=== PATIENT | female | born 1990 | race Caucasian/White ===

== ENCOUNTER → 2016-02-23 | Outpatient (CLI) | payer BC ==
[~2016-02-23] MED LIST: CALC500C70 PO; MTR600X PO; PRENTAB26 PO
--- NOTE | 2016-02-23 12:37 | DIAGNOSTIC IMAGING REPORT ---
L-SPINE MIN 4 VIEWS ROUTINE CLINICAL HISTORY: Bilateral numbness and tingling of the arms and legs COMPARISON STUDY: No previous studies for comparison. FINDINGS: There is no pathologic bowel dilatation. There is a cylindrical air-containing structure within the pelvis likely representing a tampon. There are 5 lumbar type vertebral bodies present. No fractures or subluxations are visualized. The disc space heights appear well-preserved for age. IMPRESSION: Unremarkable conventional radiographic evaluation of the lumbar spine. Electronically signed by: Vladislav De La Rosa M.D. 02/23/2016 12:36 PM Dictated Date/Time: 02/23/2016 12:35 PM
--- NOTE | 2016-02-23 13:03 | DIAGNOSTIC IMAGING REPORT ---
CERVICAL SPINE 2 OR 3 VIEWS CLINICAL HISTORY: Bilateral extremity numbness and tingling. COMPARISON STUDY: No previous studies for comparison. FINDINGS: Alignment of the cervical spine is anatomic. Vertebral body heights are maintained. There is no fracture or suspicious lesion. Disc spaces are preserved. There may be minimal endplate osteophytosis. IMPRESSION: No significant abnormality of the cervical spine. Electronically signed by: Michi Sarmiento M.D. 02/23/2016 1:01 PM Dictated Date/Time: 02/23/2016 1:01 PM
== END | disposition home or self-care (01) ==
LOC: C.RAD1850 12:10
PROVIDERS: ATTEND Nurse Practitioner
DX: R20.2 Paresthesia of skin (principal)

== ENCOUNTER → 2016-02-23 | Outpatient (CLI) | payer BC ==
[2016-02-23 12:27] LABS: BASO % 0.3 %; BASO ABS # 0.03 K/uL (0-0.2); COMPLETE YES; EOS % 1.4 %; HEMATOCRIT 40.5 % (37-47); IG% 0.2 %; LYMPH % 19.3 %; LYMPH ABS # 2.06 K/uL (1.2-3.4); MEAN CELL VOLUME 83.9 fL (80-100); MEAN CORPUSCULAR HGB CONC 34.6 g/dl (32-36); MEAN PLATELET VOLUME 9.4 fL (7.4-10.4); MONO % 7.6 %; NEUT % 71.2 %; PLATELET COUNT 219 K/uL (130-400); RED BLOOD COUNT 4.83 M/uL (4.2-5.4); WHITE BLOOD COUNT 10.66 K/uL (4.8-10.8)
[2016-02-23 12:58] LABS: ALT/SGPT 15 U/L (12-78); BLOOD UREA NITROGEN 14 mg/dl (7-18); BUN/CREATININE RATIO 20.8 (10-20); CALCIUM 9.1 mg/dl (8.5-10.1); CARBON DIOXIDE 24 mmol/L (21-32); CHLORIDE 108 mmol/L (98-107); CREATININE 0.65 mg/dl (0.60-1.20); GLUCOSE 65 mg/dl (70-99); POTASSIUM 3.9 mmol/L (3.5-5.1); SODIUM 141 mmol/L (136-145)
[2016-02-23 13:01] LABS: ALB/GLOB RATIO 1.1 (0.9-2); ALKALINE PHOSPHATASE 55 U/L (45-117); AST/SGOT 13 U/L (15-37); RHEUMATOID FACTOR < 10.0 U/mL (0-15)
[2016-02-23 14:14] LABS: LYME DISEASE AB IGG NEG (NEG); LYME DISEASE AB IGM NEG (NEG)
== END | disposition home or self-care (01) ==
LOC: C.LABBFT 11:29
PROVIDERS: ATTEND Nurse Practitioner
DX: R53.83 Other fatigue (principal)

== ENCOUNTER → 2016-05-06 | Outpatient (CLI) | payer BC ==
[2016-05-06 13:49] LABS: C-REACTIVE PROTEIN < 0.29 mg/dl (0-0.29)
[2016-05-10 11:26] LABS: GAMMA GLOBULIN 1.2 G/DL (0.8-1.7); TOTAL PROTEIN 6.7 G/DL (6.2-8.3)
[2016-05-10 17:40] LABS: VIT E ALPHA-TOCOPHEROL 8.7 mg/L (5.7-19.9); VIT E BETA&GAMMA-TOCOPHEROL <1.0 mg/L (<=4.3)
== END | disposition home or self-care (01) ==
LOC: C.LABPVFM 09:51
PROVIDERS: ATTEND Psychiatry & Neurology Neurology
DX: R20.2 Paresthesia of skin (principal); R25.2 Cramp and spasm

== ENCOUNTER → 2016-06-07 | Outpatient (CLI) | payer BC ==
[2016-06-07 14:39] LABS: BASO % 0.3 %; BASO ABS # 0.02 K/uL (0-0.2); COMPLETE YES; EOS % 0.8 %; HEMATOCRIT 39.8 % (37-47); IG% 0.3 %; LYMPH % 26.9 %; LYMPH ABS # 2.01 K/uL (1.2-3.4); MEAN CELL VOLUME 84.1 fL (80-100); MEAN CORPUSCULAR HEMOGLOBIN 27.7 pg (25-34); MEAN CORPUSCULAR HGB CONC 32.9 g/dl (32-36); MEAN PLATELET VOLUME 9.5 fL (7.4-10.4); MONO % 7.6 %; NEUT % 64.1 %; PLATELET COUNT 203 K/uL (130-400); RED BLOOD COUNT 4.73 M/uL (4.2-5.4); WHITE BLOOD COUNT 7.48 K/uL (4.8-10.8)
[2016-06-07 15:53] LABS: URINE APPEARANCE CLEAR (CLEAR); URINE BILIRUBIN NEG (NEG); URINE COLOR YELLOW; URINE NITRITE NEG (NEG); URINE SPECIFIC GRAVITY 1.023 (1.000-1.030); UROBILINOGEN NEG (NEG)
[2016-06-07 16:00] LABS: MANUAL MICROSCOPIC REQUIRED? NO; REVIEW REQ? NO
[2016-06-10 02:32] LABS: CHLAMYDIA TRACH RNA*** NOT DETECTED (NOT DETECTED); GC (NEIS GONORRHOEAE)RNA** NOT DETECTED (NOT DETECTED)
== END | disposition home or self-care (01) ==
LOC: C.LAB1850 12:50
PROVIDERS: ATTEND Obstetrics & Gynecology
DX: Z34.90 Encounter for supervision of normal pregnancy, unspecified, unspecified trimester (principal)

== ENCOUNTER → 2016-08-02 | Outpatient (CLI) | payer BC | END | disposition home or self-care (01) | LOC: C.LABBC 07:55 | PROVIDERS: ATTEND Psychiatry & Neurology Neurology | DX: R20.2 Paresthesia of skin (principal) ==

== ENCOUNTER → 2016-08-03 | Outpatient (CLI) | payer BC ==
[2016-08-03 13:11] LABS: GTGD 50 Grams
== END | disposition home or self-care (01) ==
LOC: C.LAB1850 09:36
PROVIDERS: ATTEND Obstetrics & Gynecology
DX: Z34.81 Encounter for supervision of other normal pregnancy, first trimester (principal)

== ENCOUNTER → 2016-10-11 | Outpatient (CLI) | payer BC | END | disposition home or self-care (01) | LOC: C.LABBC 07:55 | PROVIDERS: ATTEND Obstetrics & Gynecology | DX: Z34.82 Encounter for supervision of other normal pregnancy, second trimester (principal) ==

== ENCOUNTER → 2016-10-27 | Outpatient (CLI) | payer BC ==
[2016-10-27 17:38] LABS: HEMATOCRIT 34.5 % (37-47)
[2016-10-27 18:40] LABS: URINE APPEARANCE CLEAR (CLEAR); URINE BILIRUBIN NEG (NEG); URINE COLOR YELLOW; URINE EPITHELIAL CELL AUTO 0-5 /lpf (0-5); URINE NITRITE NEG (NEG); URINE PH 5.5 (4.5-7.5); URINE SPECIFIC GRAVITY 1.015 (1.000-1.030); UROBILINOGEN NEG (NEG)
[2016-10-27 18:42] LABS: MANUAL MICROSCOPIC REQUIRED? NO; REVIEW REQ? NO
[2016-10-27 19:02] LABS: GTGD 50 Grams
== END | disposition home or self-care (01) ==
LOC: C.LAB1850 16:04
PROVIDERS: ATTEND Obstetrics & Gynecology
DX: Z34.82 Encounter for supervision of other normal pregnancy, second trimester (principal)

== ENCOUNTER → 2016-11-08 | Outpatient (CLI) | payer BC | END | disposition home or self-care (01) | LOC: C.LAB1850 07:37 | PROVIDERS: ATTEND Obstetrics & Gynecology | DX: O28.1 Abnormal biochemical finding on antenatal screening of mother (principal) ==

== ENCOUNTER → 2016-12-22 | Outpatient (CLI) | payer BC | END | disposition home or self-care (01) | LOC: C.LABSPEC 17:26 | PROVIDERS: ATTEND Obstetrics & Gynecology | DX: Z34.83 Encounter for supervision of other normal pregnancy, third trimester (principal) ==

== ENCOUNTER 2017-01-14 00:55 | Outpatient (CLI) | payer BC ==
[~2017-01-14] VITALS: Ht 157.5 cm; Wt 65.3 kg
[2017-01-14 01:41] VITALS: Ht 157.5 cm; Wt 65.3 kg
--- NOTE | 2017-01-16 11:56 | EDITING REQUIRED CODING QUERY ---
DIAGNOSIS NEEDED To promote full compliance with coding requirements relating to patient care, physician participation is requested in all cases of defence force member other ranks uncertainty. Please assist us with the question(s) below: Coding Question: The patient received care in labor and delivery on 01/14/17 as noted within the record. Please document the diagnosis that is being addressed by the medication/treatment. Provider Response: DIAGNOSIS: rule out rupture of membranes WEEKS OF GESTATION: term Thank you for your assistance, Ariana Alvarado - Statistical Developer
== END 2017-01-14 06:05 | disposition home or self-care (01) ==
LOC: C.LD 00:55 → C.OPB 00:55 → EDSTATUS 01-18 00:54
PROVIDERS: ATTEND Obstetrics & Gynecology
DX: Z34.83 Encounter for supervision of other normal pregnancy, third trimester (principal)

== ENCOUNTER 2017-01-19 19:59 | Outpatient (CLI) | payer BC ==
[~2017-01-19] VITALS: Ht 157.5 cm; Wt 65.0 kg
[~2017-01-19 19:59] MED LIST changes: -CALC500C70 PO; -MTR600X PO
[2017-01-19 21:01] VITALS: Ht 157.5 cm; Wt 65.0 kg
--- NOTE | 2017-01-25 14:19 | EDITING REQUIRED CODING QUERY ---
DIAGNOSIS NEEDED To promote full compliance with coding requirements relating to patient care, physician participation is requested in all cases of milling machine operator uncertainty. Please assist us with the question(s) below: Coding Question: The patient received care in labor and delivery on 01/19/17 as noted within the record. Please document the diagnosis that is being addressed by the medication/treatment. Provider Response: DIAGNOSIS:40 weeks gestation Vaginal discharge WEEKS GESTATION:40 weeks Thank you for your assistance, Ariana Alvarado - Derrick Helper
== END 2017-01-19 22:29 | disposition home or self-care (01) ==
LOC: C.OPB 19:59 → C.OBG 19:59 → C.OPB 22:29
PROVIDERS: ATTEND Obstetrics & Gynecology
DX: O99.89 Other specified diseases and conditions complicating pregnancy, childbirth and the puerperium (principal); N89.8 Other specified noninflammatory disorders of vagina; Z3A.40 40 weeks gestation of pregnancy

== ENCOUNTER 2017-01-20 10:41 | Inpatient (IN) | payer BC ==
[~2017-01-20] VITALS: Ht 157.5 cm; Wt 65.0 kg
[2017-01-20] MEDS ORDERED: LACTATED RINGER'S 1000ML 1,000 ML IV SCH (11:03)
[2017-01-20] MEDS ORDERED: LACTATED RINGER'S 1000ML 1,000 ML IV PRN (11:03)
[2017-01-20 11:49] LABS: HEMATOCRIT 37.2 % (37-47); MEAN CELL VOLUME 89.2 fL (80-100); MEAN CORPUSCULAR HEMOGLOBIN 30.7 pg (25-34); MEAN CORPUSCULAR HGB CONC 34.4 g/dl (32-36); MEAN PLATELET VOLUME 10.1 fL (7.4-10.4); PLATELET COUNT 143 K/uL (130-400); RED BLOOD COUNT 4.17 M/uL (4.2-5.4); WHITE BLOOD COUNT 11.05 K/uL (4.8-10.8)
[2017-01-20 12:01] VITALS: Ht 157.5 cm; Wt 65.0 kg
[2017-01-20] MEDS ORDERED: PENICILLIN G POTASSIUM IV 6 MU in DEXTROSE 5% 250ML 250 ML IV ONE (12:15)
[2017-01-20] MEDS ORDERED: BUPIVACAINE 0.25% 30 ML VIAL ONE (13:41)
[2017-01-20] MEDS ORDERED: EpHEDrine SULFATE INJ 50 MG/ML AMP ONE (13:41)
[2017-01-20] MEDS ORDERED: FENTANYL 2MCG/ML ROPIV 1.25MG/ML 100ML BAG EPI ONE (13:42)
[2017-01-20] MEDS ORDERED: FENTANYL CITRATE INJ 50 MCG/1 ML 2 ML VIAL ONE (13:42)
[2017-01-20] MEDS ORDERED: LACTATED RINGER'S 1000ML 500 ML IV PRN (14:46)
[2017-01-20] MEDS ORDERED: NALOXONE HCL INJ 1 MG in SODIUM CHLORIDE 0.9% 1000ML 1,000 ML IV PRN (14:46)
[2017-01-20] MEDS ORDERED: EpHEDrine SULFATE INJ 50 MG/ML AMP IV PRN (15:00)
[2017-01-20] MEDS ORDERED: FENTANYL 2MCG/ML ROPIV 1.25MG/ML 100ML BAG EPI PRN (15:00)
[2017-01-20] MEDS ORDERED: NALOXONE HCL INJ 0.4 MG/1 ML VIAL/CARP IV PRN (15:00)
[2017-01-20] MEDS ORDERED: NALBUPHINE HCL INJ 10 MG/ML AMP IV PRN (15:00)
[2017-01-20] MEDS ORDERED: ONDANSETRON INJ 2 MG/ML 2 ML VIAL IV PRN (15:00)
[2017-01-20] MEDS ORDERED: DiphenhydrAMINE HCL 50 MG/ML VIAL IV PRN (15:00)
[2017-01-20] MEDS ORDERED: OXYTOCIN 30 UNITS/500ML NSS IV ONE (15:49)
[2017-01-20] MEDS ORDERED: OXYTOCIN 30 UNITS/500ML NSS IV PRN (16:15)
[2017-01-20] MEDS ORDERED: LANOLIN OINT EXT PRN ×2 (16:15)
[2017-01-20] MEDS ORDERED: BENZOCAINE 20% AER SPR 82.5 GM CAN EXT PRN (16:15)
[2017-01-20] MEDS ORDERED: HYDROCORTISONE ACETATE 25 MG SUPP PR PRN (16:15)
[2017-01-20] MEDS ORDERED: SUPERCREAM 0.870 % 15GM JAR EXT PRN (16:15)
[2017-01-20] MEDS ORDERED: ACETAMINOPHEN 325 MG TAB PO PRN (16:15)
[2017-01-20] MEDS ORDERED: DIPHTHERIA/TETANUS/PERTUSSIS 0.5 ML SYR/VIAL IM. ONE (16:15)
[2017-01-20] MEDS ORDERED: PENICILLIN G POTASSIUM IV 3 MU in DEXTROSE 5% 100ML 100 ML IV PRN (16:15)
[2017-01-20] MEDS ORDERED: ACETAMINOPHEN/CODEINE 300/30MG TAB PO PRN ×2 (16:15)
[2017-01-20] MEDS ORDERED: IBUPROFEN 600 MG TAB PO PRN (16:15)
[2017-01-20] MEDS ORDERED: OXYCODONE/ACETAMINOPHEN 5-325 TAB PO PRN (16:15)
--- NOTE | 2017-01-20 16:36 | Anesthesia Procedure Note ---
Anesthesia Epidural Removal Nt Date & Time Jan 20, 2017 at 16:36 Vital Signs Pain Intensity: 9.0 Notes Mental Status: alert / awake / arousable, participated in evaluation Nausea / Vomiting: adequately controlled Pain: adequately controlled Airway Patency, RR, SpO2: stable & adequate BP & HR: stable & adequate Hydration State: stable & adequate Neuraxial Anesthesia: was administered, sensory block is resolving Anesthetic Complications: no major complications apparent, pt satisfied with anesthetic care Epidural: removed without complications, with tip intact
--- NOTE | 2017-01-20 18:26 | DELIVERY SUMMARY ---
DATE OF OPERATION: 01/20/2017 Andrew arrived in labor and delivery at 5 cm, second baby. She was admitted, received an epidural. heart rate was category 1. She rapidly progressed to fully dilated after ARM for clear fluid. Delivered over only 2 contractions of pushing. The baby in right occiput anterior position. Mouth and the nares suctioned. Fluid clear, no nuchal cord. Gentle traction used. No excessive force. Live vigorous male . Cord, clamped and cut. Cord blood obtained. Cord blood collection obtained. Placenta removed with gentle traction. IV Pitocin started. Small first degree tear repaired with 3-0 Vicryl. Sponge, needle and instrument counts were correct. Estimated blood loss 350 mL. I attest to the content of the Intraoperative Record and any orders documented therein. Any exception s are noted below.
[2017-01-20] MEDS: DOCUSATE SODIUM 100 MG CAP PO SCH (20:00)
[2017-01-20 20:30] VITALS: BP 110/65; PULSE 65; TEMP 37.2
[2017-01-20 23:10] VITALS: BP 98/58; PULSE 71; TEMP 37.1
[2017-01-21 04:00] VITALS: BP 99/65; PULSE 63; TEMP 37
[2017-01-21 07:40] LABS: HEMATOCRIT 24.7 % (37-47)
[2017-01-21 07:47] VITALS: BP 107/67; PULSE 59; TEMP 37.1
[2017-01-21] MEDS: DOCUSATE SODIUM 100 MG CAP PO SCH ×2 (08:21→19:54)
[2017-01-21] MEDS: PRENATAL VITAMIN TAB PO SCH (08:21)
--- NOTE | 2017-01-21 08:58 | Progress Note ---
Subjective Jan 21, 2017. Subjective conversation w/ patient, physical exam, lab review Ambulation: ambulating normally Voiding: no voiding problems Diet Tolerance: Regular Diet Lochia: Moderate Feeding Type: Breast Feeding Objective Vital Signs Date Time Temp Pulse Resp B/P (MAP) Pulse Ox O2 Delivery O2 Flow Rate FiO2 01/21/17 07:47 37.1 59 16 107/67 (80) Room Air 01/21/17 04:00 37.0 63 18 99/65 (76) Room Air 01/20/17 23:10 Room Air 01/20/17 23:10 37.1 71 18 98/58 (71) Room Air 01/20/17 20:30 Room Air 01/20/17 20:30 37.2 65 18 110/65 (80) Room Air Physical Exam General Appearance: WELL-APPEARING Respiratory/Chest: lungs clear Abdomen: non tender Fundus: Firm Extremities: no calf tenderness Laboratory Results Last 24 Hours Test 01/20/17 11:35 01/21/17 06:47 White Blood Count 11.05 K/uL Red Blood Count 4.17 M/uL Hemoglobin 12.8 g/dL 8.2 g/dL Hematocrit 37.2 % 24.7 % Mean Corpuscular Volume 89.2 fL Mean Corpuscular Hemoglobin 30.7 pg Mean Corpuscular Hemoglobin Concent 34.4 g/dl RDW Standard Deviation 44.6 fL RDW Coefficient of Variation 13.7 % Platelet Count 143 K/uL Mean Platelet Volume 10.1 fL Assessment and Plan Post- Day#: 1 Continue Routine Care: discussed Fe
[2017-01-21 11:45] VITALS: BP 103/65; PULSE 104; PULSE 64; TEMP 37.4; O2SAT 97
[2017-01-21 16:00] VITALS: BP 109/62; PULSE 83; TEMP 37.2; O2SAT 98
[2017-01-21] MEDS ORDERED: BISACODYL 5 MG TABEC PO SCH (20:00)
[2017-01-22] VITALS: BP 113/61; PULSE 83; TEMP 37.2
[2017-01-22 06:43] LABS: HEMATOCRIT 26.5 % (37-47); MEAN CELL VOLUME 90.8 fL (80-100); MEAN CORPUSCULAR HEMOGLOBIN 30.1 pg (25-34); MEAN CORPUSCULAR HGB CONC 33.2 g/dl (32-36); MEAN PLATELET VOLUME 9.4 fL (7.4-10.4); PLATELET COUNT 138 K/uL (130-400); RED BLOOD COUNT 2.92 M/uL (4.2-5.4); WHITE BLOOD COUNT 12.92 K/uL (4.8-10.8)
[2017-01-22] MEDS ORDERED: BISACODYL 10 MG SUPP PR PRN (07:00)
[2017-01-22] MEDS ORDERED: FERR1TAB13 PO (07:24)
--- NOTE | 2017-01-22 07:24 | Progress Note ---
Subjective Jan 22, 2017. Subjective conversation w/ patient, physical exam, chart review Ambulation: ambulating normally Voiding: no voiding problems Passing Gas: Yes Diet Tolerance: Regular Diet Lochia: Moderate Feeding Type: Bottle Feeding Review of Systems Respiratory: No shortness of breath Abdomen: No vomiting Female : No dysuria Objective Vital Signs Date Time Temp Pulse Resp B/P (MAP) Pulse Ox O2 Delivery O2 Flow Rate FiO2 01/22/17 00:00 Room Air 01/22/17 00:00 37.2 83 18 113/61 (78) Room Air 01/21/17 16:00 Room Air 01/21/17 16:00 37.2 83 18 109/62 (78) 98 Room Air 01/21/17 11:45 37.4 64 20 103/65 (78) 97 Room Air 01/21/17 07:47 37.1 59 16 107/67 (80) Room Air 01/21/17 07:45 Room Air Physical Exam General Appearance: WELL-APPEARING, WD/WN, NO APPARENT DISTRESS Respiratory/Chest: lungs clear, normal breath sounds, no respiratory distress Cardiovascular: regular rate, rhythm, no gallop Abdomen: normal bowel sounds, soft Fundus: Firm, Tender (appropriately tender), Relation to Umbilicus (1 below U) Extremities: non-tender, normal inspection Laboratory Results Last 24 Hours Test 01/22/17 06:15 White Blood Count 12.92 K/uL Red Blood Count 2.92 M/uL Hemoglobin 8.8 g/dL Hematocrit 26.5 % Mean Corpuscular Volume 90.8 fL Mean Corpuscular Hemoglobin 30.1 pg Mean Corpuscular Hemoglobin Concent 33.2 g/dl RDW Standard Deviation 46.6 fL RDW Coefficient of Variation 14.2 % Platelet Count 138 K/uL Mean Platelet Volume 9.4 fL Assessment and Plan Post- Day#: 2 Continue Routine Care: Pt is (now2) delivered 01/20 15:55 at 40-3 A+/GBS+/RI Hgb 12.8, 8.2, today pending Pt doing well clinically, denies s/s anemia Pt desires to go home today, discussed dc instructions, answered all questions. Discussed taking Fe. DANIELLE MORIN FMR PGY 1 Resident Physician Supervision Note: I interviewed and examined the patient. Discussed with Dr. Сергей and agree with findings and plan as documented in the note. Any exceptions or clarifications are listed here: [None] Documented By: Dean Cheema Resident Tracking Resident Involvement: Resident Care Provided Care Provided: OB Delivery
--- NOTE | 2017-01-22 07:25 | Discharge Instructions ---
Discharge Instructions Date of Service Jan 22, 2017. Admission Reason for Admission: Check Labor Discharge Discharge Diagnosis / Problem: Spontaneous Vaginal Delivery Discharge Goals Goal(s): Routine recovery after delivery Medications Continue Dispensed Medications: supercream, dermaplast, tucks, lansinoh Activity Recommendations Activity Limitations: per Instructions/Follow-up section . Instructions / Follow-Up Instructions / Follow-Up ACTIVITY RECOMMENDATIONS: * Gradual return to full activity over the next 2-3 weeks. * No lifting - nothing heavier than baby over the next 2-3 weeks. * Do not engage in vigorous exercise, sexual activity or sports until cleared by your physician. * Do not drive or operate any motorized equipment until cleared by your physician. * You may shower/bathe daily. MEDICATIONS: For discomfort or pain, you may use Acetaminophen (Tylenol), Ibuprofen (Advil), or Naproxen (Aleve) following the package directions. For constipation you may use Colace following the package directions. BREAST CARE: If you are not breast feeding: * Wear a supportive bra 24 hours a day for one to two weeks. * Avoid stimulating your breasts and nipples as much as possible during the first few weeks after delivery. * When taking a shower, have the warm water hit your back, not breasts. * When your breasts feel full, apply ice packs. Usually three to four times a day helps ease the discomfort. * Take a mild pain medication (Tylenol / Motrin) when you are uncomfortable. If breast feeding: * Use breast milk to lubricate nipples. Lansinoh cream may be used for sore nipples. You do not need to remove cream prior to breast feeding. If using a different brand of cream, check the label for directions regarding removal of cream prior to nursing. * Wear a supportive bra. * If having problems with breasts or breast feeding, call a tax consultant or your health care provider. EPISIOTOMY CARE: After delivery, if you have an episiotomy (stitches), the following steps will ease discomfort and aid healing. * For the first 24 hours after delivery, place ice packs next to your episiotomy to help reduce swelling. * After the first 24 hour-period, sitz baths, either portable or in the tub, are suggested. A shower with a shower arm sprayed over the episiotomy may be comforting. * Abby care should be done after each voiding and bowel movement. Squirt warm water from a plastic bottle over the perineum (region of the body between the anus and urinary opening) and pat dry. * Use Dermoplast to ease discomfort. Shake container. Suffern directly over the episiotomy. Place a Tucks on a clean sanitary pad next to your episiotomy. SPECIAL CARE INSTRUCTIONS: When you are discharged from the hospital, it is important for you to follow the instructions listed below: * During the first week at home, you should be able to care for yourself and your baby. In addition, the usual light household activities are encouraged. * Limit your activities to the way you feel. Do not try to clean the house or move furniture. Be sensible. * If you actively engage in sports and have done so up until the time of your delivery, you may resume these activities as soon as you feel able. This may take up to one month or even longer. Use good judgment. * Continue to take your vitamins for at least six weeks after the of your baby. * Your diet need not be limited unless you were on a special diet before your delivery. Breast-feeding mothers need around 2500 calories per day and at least 64-80 ounces of fluid per day (8 to 10 glasses). * You should eat foods from the four major food groups. Crash diets or fad diets are to be avoided. Eating lean meats, fresh fruits and vegetables, low-fat dairy products, high fiber foods and a regular exercise program, will help you get back to your pre- weight without putting your health at risk. * Constipation is sometimes a problem after delivery. Take a mild laxative as needed. If breast feeding, Milk of Magnesia is acceptable to use. You may use a suppository or Fleets enema if no episiotomy. * A daily shower or tub bath is suggested. Be sure to thoroughly and gently dry the perineum. * A bloody vaginal discharge will usually continue until around four weeks post . A small amount of bleeding may continue for as long as six weeks. Vaginal discharge changes from the bright red bleeding after delivery to pink then brownish and finally yellowish-pink before becoming white and disappearing. * Bleeding may increase with activity. Your first period may come in 4-8 weeks. If you are breast feeding, your period may be delayed even longer. * [place] (sex) can begin whenever both you and your partner feel comfortable and do not have any form of genital infection. It is recommended that you wait at least six weeks for internal and external healing to occur. If you have questions, please talk to your health care practitioner. A condom should be used to prevent infection and . * Foreplay, gentle intercourse and lubrication is very important the first several times to prevent pain. A water-based lubricant such as K-Y jelly or Astroglide may be used. * If you have RH negative blood and your baby is RH positive, you will receive RHOGAM by injection prior to discharge. The nurse will give you a card to keep with you that has the date and place that you received RHOGAM after delivery. * During your care, you had a Rubella screen done to check for the presence of rubella antibodies in your blood. If your test was negative, you will receive a Rubella vaccine prior to discharge. This vaccine may cause a fever, soreness at the injection site and flu-like symptoms. If these symptoms persist, notify your health care practitioner. is not advised for one month after a Rubella vaccine. * Verbalizes understanding of car seat law as reviewed with patient nursing. * Car Seat hand-out given and reviewed with patient by nursing. * Shaken baby information reviewed with patient by nursing. Call you doctor if: * Heavy bleeding (saturating several pads an hour) or passing clots the size of your fist. * A fever >101 degrees F (38.3 degrees C) on two occasions four hours apart and /or chills. * Unusual pain in the pelvic or vaginal areas. * "Baby Blues" lasting longer than two weeks. If you have any questions or concerns, call your health care practitioner at . FOLLOW UP VISIT: * Please call the office at to schedule a 6 week examination. It is important you keep this appointment. It is important for you to make arrangements for either yearly or twice yearly check-ups thereafter. Current Hospital Diet Patient's current hospital diet: Regular OB Diet Discharge Diet Recommended Diet: Regular OB Diet Pending Studies Studies pending at discharge: no Medical Emergencies . Who to Call and When: Medical Emergencies: If at any time you feel your situation is an emergency, please call 911 immediately. . Non-Emergent Contact Non-Emergency issues call your: Primary Care Provider . . "Provider Documentation" section prepared by Delaney Rushing. . VTE Core Measure Inpt VTE Proph given/why not?: Treatment not indicated
[2017-01-22 07:54] VITALS: BP 103/77; PULSE 77; TEMP 36.9
[2017-01-22] MEDS: PRENATAL VITAMIN TAB PO SCH (08:12)
[2017-01-22] MEDS: DOCUSATE SODIUM 100 MG CAP PO SCH (08:12)
[2017-01-22 14:56] VITALS: BP_DIAS 77; PULSE 77; TEMP 36.9
[2017-01-22 15:23] VITALS: BP 111/74; PULSE 86; TEMP 37.3
== END 2017-01-22 16:14 | disposition home or self-care (01) | DRG 775 ==
LOC: C.OPB 10:41 → C.LD 10:42 → C.OPB 11:03 → C.OBG 20:56
PROVIDERS: ADMIT Obstetrics & Gynecology; ATTEND Obstetrics & Gynecology
PROC: 0HQ9XZZ Repair Perineum Skin, External Approach (ICD-10-PCS; principal; 2017-01-20)
PROC: 10E0XZZ Delivery of Products of Conception, External Approach (ICD-10-PCS; principal; 2017-01-20)
DX: O70.0 First degree perineal laceration during delivery (principal); Z37.0 Single live birth; Z3A.40 40 weeks gestation of pregnancy